=== PATIENT | male | born 1970 | race Caucasian/White ===

== ENCOUNTER 2017-08-21 06:44 | Observation (INO) | payer OTHER ==
[2017-08-21] MEDS ORDERED: DIAZEPAM 5 MG TAB PO ONE (06:48)
[2017-08-21] MEDS ORDERED: NS 1,000 ML IV ONE (06:48)
[2017-08-21] MEDS ORDERED: diphenhydrAMINE 25 MG CAP PO ONE (06:48)
[2017-08-21] MEDS ORDERED: BACITRACIN IRRIGATION/NS 50,000 UNITS/1,000 ML BTL IRR ONE (06:48)
--- NOTE | 2017-08-21 07:09 | CPEKG ---
Heart Rate: 75 RR Interval: 800 P-R Interval: 176 QRSD Interval: 178 QT Interval: 452 QTC Interval: 505 P [place]: 46 QRS [place]: -73 T Wave [place]: 93 EKG Severity - ABNORMAL ECG - EKG Impression: ATRIAL-SENSED VENTRICULAR-PACED RHYTHM Electronically Signed By: Phoenix Chua 21-Aug-2017 08:33:10
[2017-08-21 07:26] LABS: PLATELET COUNT 211 10^3/uL (150-400)
[2017-08-21 07:34] LABS: INR 0.96 (0.83-1.16)
[2017-08-21] MEDS ORDERED: methylPREDNISolone SOD SUCC 125 MG/2 ML VIAL ONE (08:25)
[2017-08-21] MEDS ORDERED: BUPIVACAINE 0.5% 30 ML SDV ONE (08:26)
[2017-08-21] MEDS ORDERED: IOPAMIDOL (ISOVUE-300) 100 ML BTL ONE (08:26)
[2017-08-21] MEDS ORDERED: EPINEPHrine 1 MG/10 ML SYR IVP ONE (08:26)
[2017-08-21] MEDS ORDERED: LIDOCAINE 1% 300 MG/30 ML SDV ONE (08:26)
[2017-08-21] MEDS ORDERED: FAMOTIDINE 20 MG/NACL/50 ML BAG IV ONE (08:26)
[2017-08-21] MEDS ORDERED: MIDAZOLAM 2 MG/2 ML VIAL IVP ONE (08:29)
--- NOTE | 2017-08-21 08:29 | PDANEPAE ---
ANE History of Present Illness 47 yo for biv pm ef 35% NIDDM CHELSI ANE Past Medical History - Cardiovascular History Hx Arrhythmias: Yes Hx Chest Pain: No Hx Coronary Artery / Peripheral Vascular Disease: No Hx CHF / Valvular Disease: Yes - Pulmonary History Hx Sleep Apnea: Yes ANE Review of Systems Review of Systems: - Exercise capacity METS (RN): 3 METS ANE Patient History - Allergies Allergies/Adverse Reactions: ampicillin Allergy (Verified 03/30/15 07:48) vancomycin Allergy (Verified 03/30/15 07:48) - Home Medications Home medications: home medication list seen and reviewed Home Medications: Aspirin [Aspirin 81mg (*)] 81 mg PO DAILY 08/16/17 [Last Taken 08/20/17 10:00] Atorvastatin Calcium [Lipitor 20 mg (*)] 20 mg PO DAILY 08/16/17 [Last Taken 10/02 10:00] Carvedilol [Coreg (*)] 3.125 mg PO BIDMEAL 08/16/17 [Last Taken 08/20/17 20:00] Furosemide [Lasix 40 MG (*)] 40 mg PO DAILY 08/16/17 [Last Taken 08/20/17 10:00] Levothyroxine [Synthroid 25 mcg (*)] 25 mcg PO DAILY06 08/16/17 [Last Taken 10/02 08:00] Lisinopril [Zestril 5 mg (*)] 5 mg PO DAILY 08/16/17 [Last Taken 08/20/17 10:00] [place]-3 Fatty Acids [Fish Oil 1000 mg (*)] 1,000 mg PO DAILY 08/16/17 [Last Taken 08/20/17 10:00] Potassium Cl [Klor-Con 20 meq (*)] 20 meq PO DAILY 08/16/17 [Last Taken 10:00] Spironolactone [Aldactone 25 MG (*)] 25 mg PO DAILY 08/16/17 [Last Taken 10:00] metFORMIN HCL [Glucophage 1000 mg] 1,000 mg PO BIDMEAL 08/16/17 [Last Taken 10/02 20:00] - Smoking Hx Smoking Status: Never smoked ANE Labs/Vital Signs - Labs Result Diagrams: 08/21/17 07:15 08/21/17 07:15 - Vital Signs Height: 5 ft 5 in Weight: 123.8 kg ANE Physical Exam - Airway Mallampati Score: Class 2 Mouth exam: normal dental/mouth exam - Pulmonary Pulmonary: no respiratory distress - Cardiovascular Cardiovascular: regular rate and rhythym - ASA Status ASA Status: III ANE Anesthesia Plan Anesthesia Plan: general endotracheal anesthesia
[2017-08-21] MEDS ORDERED: FAMOTIDINE 20 MG/2 ML SDV IVP ONE (08:30)
[2017-08-21] MEDS ORDERED: methylPREDNISolone SOD SUCC 125 MG/2 ML VIAL IVP ONE (08:30)
[2017-08-21] MEDS ORDERED: ceFAZolin 2 GM/SWFI 2 GM/20 ML SYR IVP ONE (08:30)
--- NOTE | 2017-08-21 08:33 | PDGENHP ---
History & Physical Chief Complaint: chf, nicmp Relevant Physical Exam: s1s2 rrr. cta. ao3 Cardiorespiratory Assessment: 47 M, congential complete AV block, now with NICMP and CHF. Normal coronaries, LVEF 30%. Plan addition of CS lead and also RV lead (if anatomy allows), possible tunneling from R SC access, possible new device RSC
[2017-08-21] MEDS ORDERED: REMIFENTANIL HCL 1 MG VIAL ONE (08:39)
[2017-08-21] MEDS ORDERED: fentaNYL 100 MCG/2 ML INJ ONE (08:39)
[2017-08-21] MEDS ORDERED: PROPOFOL/EMULSION 500 MG/50 ML BOTTLE IV ONE (08:39)
[2017-08-21] MEDS ORDERED: FAMOTIDINE 20 MG/NACL 50 ML IV ONE (08:45)
[2017-08-21] MEDS ORDERED: ONDANSETRON 4 MG/2 ML VIAL ONE (10:50)
[2017-08-21] MEDS ORDERED: ROCURONIUM 100 MG/10 ML VIAL ONE (10:50)
[2017-08-21] MEDS ORDERED: epHEDrine SULFATE 10 MG/ML SYR ONE (10:51)
--- NOTE | 2017-08-21 11:25 | EPPROC ---
Electrophysiology Procedure Note: PROCEDURE PERFORMED: 1. Upgrade of A-V PM to A-BiV PM 2. Subclavian vein angiography 3. Fluoroscopy 4. Pocket revision INDICATION: Existing A-V PM for congential complete AV block Pacemaker dependent junctional escape rhythm of 35 bpm appears after inhibiting pacing for 10-15 seconds Cardiomyopathy PROCEDURE NOTE: Patient presented to the cardiac catheterization laboratory in a fasting, postabsorptive state. Dr. Han administered anesthesia. The L infraclavicular area was prepped and draped in the usual sterile fashion. Lidocaine plus bupivacaine was used for local anesthesia. L subclavian venography was performed by injection of iodinated contrast into the L antecubital vein. This was done to assure patency of the vein and also to assess for any anatomical aberrations. Using a combination of blunt and sharp dissection and electrocautery, the dissection was carried down to the prepectoral fascia. The existing pacemaker pocket was exposed. All bleeding was controlled with electrocautery. The pocket was packed with gauze soaked in antibiotic solution. Fluoroscopy was utilized during the entire procedure for venous access and placement of the leads. The existing pacemaker pocket was in the superficial fat plane. Dissection was continued down to the prepectoral fascia and a pocket was fashioned in this plane. The leads were freed as much as possible from the existing pocket and tunneled to the deeper pocket. Using a direct stick technique the left extrathoracic axillary vein was accessed with 1 sticks using the modified Seldinger technique. Placement of the guide wire into the venous system was confirmed by low pressure blood return and also by visualizing the guide wire advancing into the inferior vena cava. A purse string suture was applied around the guide wire. Diagnostic testing of the existing leads was performed. A 9 [place] sheath was advanced over the guide wire into the subclavian vein. The coronary sinus ostium was engaged. Occlusion retrograde coronary sinus angiography was performed in 2 views. A coronary sinus quadrapolar lead was advanced into the coronary sinus. An angioplasty wire was advanced through the lead and advanced into the mid portion of the lateral branch of the coronary sinus. The lead was advanced over the angioplasty wire. Pacing threshold, sensing and impedance was determined. There was no diaphragmatic stimulation at maximum output. The delivery system and the 9 Fr sheath were peeled away. Again, pacing threshold, sensing and impedance was determined. There was no diaphragmatic stimulation at maximum output. The CS lead was secured to the prepectoral fascia with 3nonabsorbablesutures. Pacing threshold and sensing parameters of the RA and RV leads were checked again. Leads are old uniopolar leads, they were attached to Caravan adapters. The gauze packing was removed from the pacemaker pocket. The pocket was again inspected for any bleeding. The leads were attached to the pacemaker securely. The pacemaker was inserted into the pocket and secured in place with a nonabsorbable suture. Fluoroscopy was performed in HERNANDEZ and LIBERIAN planes to verify right sided placement of the RA and RV leads. Also fluoroscopy of the pacemaker pocket was performed. The pacemaker pocket was closed in 3 layers with absorbable monocryl sutures and chilango. Appropriate dressing was applied. The patient left the cardiac catheterization laboratory in stable condition. Serial Numbers: 1. Device [facility] Quadra Allure MP [id number] ASSOCIATE DESIGNER-P SN [id number] 2. Atrial Lead [employer] 483-03/52 cm SN [id number], adapter Caravan SN [id number] 3. Right Ventricular Lead [employer] 493-03/58 cm SN [id number], adapter Caravan SN [id number] 4. Left Ventricular Lead [facility] [id number] SN [id number] Stimulation Thresholds & Impedance Measurements: 1. Atrial Lead 1 V 0.5 ms P 1.1 mV 360 ohm 2. Right Ventricular Lead 2.2 V @ 1 ms R 3.7 mV 450 ohm 3. Left Ventricular Lead 0.7 V 0.5 ms 865 ohm Kash Pacing Parameters: 1. Pacing mode DDDR 2. Lower rate 55 ppm 3. Upper rate 150 ppm Patient Problems: Problems Problem Status Onset Cardiomyopathy Acute
--- NOTE | 2017-08-21 11:35 | CPEKG ---
Heart Rate: 83 RR Interval: 723 P-R Interval: 156 QRSD Interval: 140 QT Interval: 412 QTC Interval: 485 P [place]: 127 QRS [place]: 122 T Wave [place]: -9 EKG Severity - ABNORMAL ECG - EKG Impression: ATRIAL-SENSED VENTRICULAR-PACED RHYTHM EKG Impression: BiV paced Electronically Signed By: Phoenix Chua 21-Aug-2017 11:56:29
--- NOTE | 2017-08-21 11:36 | POSTANESTH ---
Post Anesthetic Evaluation Cardiovascular Status: Normal, Stable Respiratory Status: Normal, Stable Level of Consciousness/Mental Status: Can Participate in Eval Pain Control: Adequate, Prn Tx Ordered Nausea/Vomiting Control: Adequate, Prn Tx Ordered Complications Possibly Related to Anesthesia: None Noted
[2017-08-21] MEDS: CARVEDILOL 3.125 MG TAB PO SCH (18:38)
[2017-08-22 04:45] LABS: PLATELET COUNT 245 10^3/uL (150-400)
[2017-08-22] MEDS ORDERED: LEVOTHYROXINE 25 MCG TAB PO SCH (06:00)
[2017-08-22 07:32] VITALS: BP 124/69
--- NOTE | 2017-08-22 08:55 | CPEKG ---
Heart Rate: 70 RR Interval: 857 P-R Interval: 182 QRSD Interval: 140 QT Interval: 408 QTC Interval: 441 P [place]: 54 QRS [place]: 224 T Wave [place]: 12 EKG Severity - ABNORMAL ECG - EKG Impression: ATRIAL-SENSED VENTRICULAR-PACED RHYTHM Electronically Signed By: Chencho Villanueva 22-Aug-2017 09:44:04
[2017-08-22] MEDS ORDERED: POTASSIUM CL 20 MEQ TAB PO SCH (09:00)
[2017-08-22] MEDS ORDERED: FUROSEMIDE 40 MG TAB PO SCH (09:00)
[2017-08-22] MEDS ORDERED: ATORVASTATIN CALCIUM 20 MG TAB PO SCH (09:00)
[2017-08-22] MEDS ORDERED: SPIRONOLACTONE 25 MG TAB PO SCH (09:00)
[2017-08-22] MEDS ORDERED: OMEGA-3 FATTY ACIDS 1,000 MG CAP PO SCH (09:00)
[2017-08-22] MEDS ORDERED: LISINOPRIL 5 MG TAB PO SCH (09:00)
[2017-08-22] MEDS ORDERED: ASPIRIN 81 MG CHEWABLE TAB PO SCH (09:00)
--- NOTE | 2017-08-22 09:29 | ASMTCMCOM ---
CM Note CM Note Notes: 08/22/2017 Case Management Note Reviewed chart and spoke w/RN. Pt was admitted for CHF and underwent a pacemaker upgrade. There are no case management d/c needs identified d/t pt age, activity levels prior to admission and family support. There are no PT or OT evals ordered at this time. Case Management d/c poc: independent with follow up as directed. Case Management to follow. Date Signed: 08/22/2017 09:28 AM Electronically Signed By:Evelyn Bauer RN
[2017-08-22] MEDS: CARVEDILOL 3.125 MG TAB PO SCH (09:34)
--- NOTE | 2017-08-22 11:25 | ASDISCHSUM ---
Discharge Information Plan Status:Home with No Needs Medically Cleared to Leave:08/22/2017 Discharge Date:08/22/2017 CM D/C Disposition:Home, Routine, Self-Care ADT D/C Disposition:Home, Routine, Self-Care Projected Discharge Date:08/22/2017 Transportation at D/C:Family Discharge Delay Reason: Follow-Up Date:08/22/2017 Discharge Slot: Final Diagnosis: Placement Information Patient Contact Information Contact Name:SALEEM Relationship:Mother Address:[place] City: [facility] Phone: [facility]/Zip Code: Email: Financial Information Financial Class:HMO and PPO Plans Primary Plan Desc:ADMINISTRATIVE CONCEPTS Primary Plan Number:[id number] Secondary Plan Desc:MÓNICA PPO HMO OPEN ACCESS Secondary Plan Number:[id number] Assessment Information [facility] CM Progress Note CM Note CM Note Notes: 08/22/2017 Case Management Note Reviewed chart and spoke w/RN. Pt was admitted for CHF and underwent a pacemaker upgrade. There are no case management d/c needs identified d/t pt age, activity levels prior to admission and family support. There are no PT or OT evals ordered at this time. Case Management d/c poc: independent with follow up as directed. Case Management to follow. Date Signed: 08/22/2017 09:28 AM Electronically Signed By:Evelyn Bauer RN Case Management Discharge Plan Note Case Management Discharge Discharge Order Complete? Answers: Yes Patient to Obtain Answers: Independently Medications Transportation Arranged Answers: Family/Friends Discharge Comments Notes: 08/22/2017 Case Management Note Pt to d/c indepedent with follow up as directed. Date Signed: 08/22/2017 11:24 AM Electronically Signed By:Evelyn Bauer RN Intervention Information
--- NOTE | 2017-08-22 11:25 | ASMTLACE ---
EFREM Length of stay for Answers: 1 day current admission Acuity / Level of Answers: No Care: Did the patient have an inpatient admission? Comorbidities - select Answers: Congestive heart failure all that apply Other Notes: congenital complete AV block, now with NICMP # of Emergency department Answers: 0 visits in the last 6 months Score: 4 Date Signed: 08/22/2017 11:25 AM Electronically Signed By:Evelyn Bauer RN
--- NOTE | 2017-08-22 11:51 | GDS ---
[f rep st] DISCHARGE SUMMARY ADMISSION DIAGNOSES: 1. Congenital complete heart block, status post pacemaker with remote permanent pacemaker implantati on. 2. Nonischemic cardiomyopathy with known ejection fraction of 30% to 35% despite being on maximum me dical therapy. 3. Diabetes. 4. Hyperlipidemia. 5. Hypertension. 6. Obstructive sleep apnea. DISCHARGE DIAGNOSES: 1. Complete heart block. 2. Status post permanent pacemaker upgrade, with new [employer] Jordi generator, and new coronary sinus left ventricular lead implantation [employer] Jordi, pocket. 3. Nonischemic cardiomyopathy. 4. Diabetes. 5. Hyperlipidemia. 6. Hypertension. 7. Obstructive sleep apnea. PROCEDURES PERFORMED DURING HOSPITALIZATION: 1. Electrocardiogram. 2. Upgrade pacemaker to Bi-V pacer. 3. Subclavian angiogram. 4. Implantation of coronary sinus LV lead. 5. Pacemaker pocket revision. 6. Chest x-ray. BRIEF HISTORY: Please see H and P. Briefly, the patient is a 47-year-old male, who was first diagno sed with congenital complete heart block with pacemaker implantation at 14 years of age. He had rece ntly been admitted to [facility] with heart failure, was found that his ejection fractio n was 30% to 35%. Coronary angiogram was done with reportedly normal coronary arteries, diagnosed wi th nonischemic cardiomyopathy. Despite medical management, his recent echocardiogram showing no impr ovement in his ejection fraction. Potentially thinking pacer-induced myopathy. The patient was seen by Dr. Chua, with discussion about upgrading his device to a biventricular pacemaker for re-synchrono us therapies in hope to help improve his overall ejection fraction. Risks and benefits of the proced ure were explained to the patient, he verbalized understanding and wanting to proceed. HOSPITAL COURSE: Patient was admitted to [facility], prepped for procedure and taken to the cardiac cathete rization lab. There, Dr. Chua successfully implanted a new [employer] Jordi LV coronary sinus lead, revised t he patient's pacemaker pocket, and implanted a new [employer] Jordi device, to his existing atrial and right ventricular leads. No complications, patient was taken back to the C[facility], and ultimately to the PCU ov ernight. There, he has been atrial-sensed, V-paced throughout the evening. He denies any chest pain , shortness of breath, denies of any lightheadedness or palpitations. He has been up and walking the unit without any difficulties. Continuous cardiac monitoring showing A-sensed, V-paced with no andres gnant arrhythmias or pauses noted. PHYSICAL EXAMINATION DONE TODAY: GENERAL APPEARANCE: Short statured, mildly obese, male. He is alert and oriented to person, place, time, and situation, appears to be under no acute distres s. CURRENT VITAL SIGNS: Blood pressure of 124/69, heart rate of 63, respirations 16, saturating 93% on room air, temperature 36.5 degrees Celsius. HEENT: Head is normocephalic, lips and tongue are p ink and moist with no signs of cyanosis, conjunctivae pink. NECK: Trachea is midline, +2 carotid pu lses bilateral, no auscultated bruits, no jugular vein distention. RESPIRATORY: Lungs are clear to auscultation, no rhonchi, rales or wheezes, no accessory muscle use, no intercostal muscle retraction noted. CARDIAC: Regular rate, regular rhythm, S1, S2, 1/6 systolic murmur known along the left lilly rnal border. ABDOMEN: Soft, nontender, bowel sounds x4 quadrants, no organomegaly, no palpable mass es. SKIN: [place], warm, dry, no cyanosis, no clubbing, no peripheral edema. VASCULAR: +2 carotid pu lses bilateral, +2 radial pulses bilateral, +1 dorsal pedal and posterior tibial pulses bilateral. P ACEMAKER INSERTION SITE: Left anterior chest, incision intact with chilango with no redness, swelling , drainage, ecchymosis or hematoma. Dressing change done at this time. LABORATORY STUDIES: Laboratory studies drawn today show WBC of 15.73, hemoglobin 13.8, hematocrit of 41.3, platelet count of 245. Sodium 139, potassium 5.0, chloride 103, CO2 is 26, BUN 19, creatinine 0.8, glucose 158, calcium 9.3. PROCEDURES: Permanent pacemaker upgrade as mentioned above, morning electrocardiogram shows A-sense with V-paced rhythm. Morning chest x-ray showing no acute cardiopulmonary process, no delayed pneumo thorax from device implantation. Device interrogation by [employer]. Jordi rep, showing device functioning wi thin normal limits. DISCHARGE DISPOSITION: Patient will be discharged home in stable condition. He is under activity re strictions of not lifting left arm higher than shoulder height for the next 6 weeks and not lifting m ore than 10 pounds with the left arm for the next 6 weeks. DISCHARGE MEDICATIONS: Please see discharge medication reconciliation sheet, note patient did receiv e contrast during his procedure yesterday, and he has been told that he is not to resume his metformi n until tomorrow night, 48 hours after his procedure. DISCHARGE INSTRUCTIONS: Post pacemaker implantation Bi-V discharge instructions went over with the p atient and including monitoring for signs of infection, bleeding precautions, activity restricti on, and medication compliancy. At the time of discharge, patient and verbalize understanding al l instructions and have no questions or concerns. They have been told that the patient has a device and wound check set up in our office next week and a followup appointment with Dr. Chua next month. T he patient has been told that if any problems or concerns come up post discharge, they are to notify our office or return to the hospital. TOTAL TIME SPENT ON DISCHARGE: Greater than 30 minutes. /[id number]/MODL
== END 2017-08-22 11:47 | disposition home or self-care (01) ==
LOC: FCATH 06:44 → F2W 11:06
PROVIDERS: ADMIT Internal Medicine Cardiovascular Disease; ATTEND Internal Medicine Cardiovascular Disease
DX: Q24.6 Congenital heart block (principal); I42.9 Cardiomyopathy, unspecified; E11.9 Type 2 diabetes mellitus without complications; E78.5 Hyperlipidemia, unspecified; I11.0 Hypertensive heart disease with heart failure; G47.33 Obstructive sleep apnea (adult) (pediatric); I50.9 Heart failure, unspecified; Z79.82 Long term (current) use of aspirin; I44.2 Atrioventricular block, complete; Z88.0 Allergy status to penicillin
CPT/HCPCS: C1883; C1900; C2621; G0378; J0690; J1200; J2250; J2405; J2704; J2930; J3010; Q9967

== ENCOUNTER 2017-08-28 13:00 | Observation (INO) | payer OTHER ==
[2017-08-28] MEDS ORDERED: ONDANSETRON DISINTEGRATING 4 MG TAB PO PRN (16:58)
[2017-08-28] MEDS ORDERED: ONDANSETRON 4 MG/2 ML VIAL IVP PRN (16:58)
[2017-08-28] MEDS ORDERED: ACETAMINOPHEN 325 MG TAB PO PRN (16:58)
--- NOTE | 2017-08-28 16:58 | PDCARPN ---
Cardiology Progress Note Chief Complaint: lead dislodged Assessment/Plan: Assessment\Plan: Toni is a 47 y/o M with a history of congenital CHB s/p pacer at age 14. He was recently diagnosed with NICMP with EF of 35% and the decision was made to upgrade him to a BIV device on 08/21. His pacer interrogation today showed a his CS lead dislodged and his RV lead has impedence decreased. He is admitted for CS lead revision and new RV lead. 08/28/17 16:53 Subjective: He denies any CP or SOB. - Physical Exam Constitutional: WDWN Cardiovascular: regular rate and rhythm Respiratory: clear to auscultate bilat, no crackles, no wheezes Skin: no edema Neurologic: AAOx3 ICD10 Worksheet Patient Problems: Problems Problem Status Onset Cardiomyopathy Acute
[2017-08-28 18:40] LABS: INR 0.9 (0.83-1.16); PROTIME(PATIENT) 12.4 SEC (12.0-15.0)
[2017-08-28] MEDS: CARVEDILOL 3.125 MG TAB PO SCH (18:48)
[2017-08-28 20:26] LABS: PLATELET COUNT 252 10^3/uL (150-400)
[2017-08-29] MEDS ORDERED: NS 1,000 ML IV ONE (06:00)
[2017-08-29] MEDS ORDERED: BACITRACIN IRRIGATION/NS 50,000 UNITS/1,000 ML BTL IRR ONE ×2 (06:00→12:00)
[2017-08-29] MEDS: LEVOTHYROXINE 25 MCG TAB PO SCH (09:43)
[2017-08-29] MEDS: ATORVASTATIN CALCIUM 20 MG TAB PO SCH (09:43)
[2017-08-29] MEDS: CARVEDILOL 3.125 MG TAB PO SCH ×2 (09:43→18:06)
[2017-08-29] MEDS: LISINOPRIL 5 MG TAB PO SCH (09:43)
[2017-08-29] MEDS ORDERED: methylPREDNISolone SOD SUCC 125 MG/2 ML VIAL IVP ONE (12:45)
[2017-08-29] MEDS ORDERED: FAMOTIDINE 20 MG/NACL 50 ML IV ONE (13:00)
[2017-08-29] MEDS ORDERED: MIDAZOLAM 2 MG/2 ML VIAL IVP ONE (13:16)
--- NOTE | 2017-08-29 13:16 | PDANEPAE ---
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 Jordi VANESSA Patient History - Allergies Allergies/Adverse Reactions: ampicillin Allergy (Severe, Verified 08/28/17 19:52) Swelling/neck,face,throat vancomycin Allergy (Intermediate, Verified 08/28/17 19:52) Red Man Syndrome - Home Medications Home medications: home medication list seen and reviewed Home Medications: Aspirin [Aspirin 81mg (*)] 81 mg PO DAILY 08/16/17 [Last Taken 08/28/17 10:00] Atorvastatin Calcium [Lipitor 20 mg (*)] 20 mg PO HS 08/16/17 [Last Taken 21:00] Carvedilol [Coreg (*)] 3.125 mg PO BIDMEAL 08/16/17 [Last Taken 08/28/17 18:00] Furosemide [Lasix 40 MG (*)] 40 mg PO DAILY 08/16/17 [Last Taken 08/28/17 10:00] Levothyroxine [Synthroid 25 mcg (*)] 25 mcg PO DAILY 08/16/17 [Last Taken 09:00] Lisinopril [Zestril 5 mg (*)] 5 mg PO DAILY 08/16/17 [Last Taken 08/28/17 10:00] [place]-3 Fatty Acids [Fish Oil 1000 mg (*)] 1,000 mg PO DAILY 08/16/17 [Last Taken 08/28/17 10:00] Potassium Cl [Klor-Con 20 meq (*)] 20 meq PO DAILY 08/16/17 [Last Taken 10:00] Spironolactone [Aldactone 25 MG (*)] 25 mg PO DAILY 08/16/17 [Last Taken 10:00] metFORMIN HCL [Glucophage 1000 mg] 1,000 mg PO BIDMEAL 08/16/17 [Last Taken 10:00] Ascorbic Acid [Vitamin C 500 mg (*)] 500 mg PO DAILY 08/28/17 [Last Taken 10:00] Cyanocobalamin [Vitamin B12 (*)] 1,000 mcg PO DAILY 08/28/17 [Last Taken 10:00] - NPO status NPO Status: no food or drink >8 hours - Smoking Hx Smoking Status: Never smoked ANE Labs/Vital Signs - Labs Result Diagrams: 08/28/17 19:55 08/28/17 19:55 - Vital Signs Blood Pressure: 108/66 Heart Rate: 83 Respiratory Rate: 14 O2 Sat (%): 92 Height: 5 ft 5 in Weight: 117 kg ANE Physical Exam - Airway Neck exam: FROM Mallampati Score: Class 3 Mouth exam: normal dental/mouth exam - Pulmonary Pulmonary: no respiratory distress - Cardiovascular Cardiovascular: regular rate and rhythym - ASA Status ASA Status: III ANE Anesthesia Plan Anesthesia Plan: general endotracheal anesthesia
[2017-08-29] MEDS ORDERED: REMIFENTANIL HCL 1 MG VIAL ONE (13:22)
[2017-08-29] MEDS ORDERED: PROPOFOL/EMULSION 500 MG/50 ML BOTTLE IV ONE (13:22)
[2017-08-29] MEDS ORDERED: fentaNYL 100 MCG/2 ML INJ ONE (13:22)
[2017-08-29] MEDS ORDERED: LIDOCAINE 1% 300 MG/30 ML SDV ONE (13:31)
[2017-08-29] MEDS ORDERED: IOPAMIDOL (ISOVUE-300) 100 ML BTL ONE (13:35)
[2017-08-29] MEDS ORDERED: BUPIVACAINE 0.5% 30 ML SDV ONE (13:35)
[2017-08-29] MEDS ORDERED: ceFAZolin 2 GM/SWFI 2 GM/20 ML SYR IVP ONE (14:00)
--- NOTE | 2017-08-29 16:59 | EPPROC ---
Electrophysiology Procedure Note: PROCEDURE PERFORMED: 1. Subclavian vein angiography 2. Fluoroscopy 3. Removal of old LV lead and placement of new LV lead 4. Placement of new RV lead INDICATION: Existing A-V PM for congential complete AV block Pacemaker dependent junctional escape rhythm of 35 bpm appears after inhibiting pacing for 10-15 seconds Cardiomyopathy Upgrade to BiV pacer last week, however LV lead dislodged and old RV lead impedance dropped to 180 ohms PROCEDURE NOTE: Patient presented to the cardiac catheterization laboratory in a fasting, postabsorptive state. Dr. Han administered anesthesia. The L infraclavicular area was prepped and draped in the usual sterile fashion. L subclavian venography was performed by injection of iodinated contrast into the L antecubital vein. This was done to assure patency of the vein. Using a combination of blunt and sharp dissection and electrocautery, the dissection was carried down to the prepectoral fascia. The existing pacemaker pocket was exposed. All bleeding was controlled with electrocautery. The pocket was packed with gauze soaked in antibiotic solution. Fluoroscopy was utilized during the entire procedure for venous access and placement of the leads. Using a direct stick technique the left extrathoracic axillary vein was accessed with 1 sticks using the modified Seldinger technique. Placement of the guide wire into the venous system was confirmed by low pressure blood return and also by visualizing the guide wire advancing into the inferior vena cava. 6Fr sheath was placed and RV lead placed via sheath into RV apex and screwed into place. Sheath was peeled away. Lead parameters were checked, there was no diaphgramatic stimulation at maximum output. The existing coronary sinus lead. A Luge angioplasty wire was placed via the lead into the lateral branch of the coronary sinus. However the lead could not be advanced because of lack of support. We also tried using a Mailman wire without success. At this point angioplasty wire was left in the venous system, using a dilator was exchanged for a 0.35 inch J-wire. A 9 Greek [place] sheath was advanced over the guide wire into the subclavian vein. The coronary sinus ostium was engaged. A Medtronic 88 cm coronary sinus quadrapolar lead (straight, tined) was advanced into the coronary sinus. Tined lead was used since previous lead dislodged despite good location, patient is aware that this may cause issues in case lead explant is needed in the future. An angioplasty wire was advanced through the lead and advanced into the mid portion of the lateral branch of the coronary sinus. The lead was advanced over the angioplasty wire. Pacing threshold, sensing and impedance was determined. There was no diaphragmatic stimulation at maximum output. The delivery system and the 9 Fr sheath were peeled away. Again, pacing threshold, sensing and impedance was determined. There was no diaphragmatic stimulation at maximum output. The CS lead was secured to the prepectoral fascia with 3nonabsorbablesutures. Pacing threshold and sensing parameters of the RA lead was checked again. RA lead is an old uniopolar lead, this is attached to [employer] adapters. RV lead was capped and sutured to the posterior aspect of the pacemaker pocket. The gauze packing was removed from the pacemaker pocket. The pocket was again inspected for any bleeding. The leads were attached to the pacemaker securely. The pacemaker was inserted into the pocket and secured in place with a nonabsorbable suture. Adequate slack was assured on the leads by anesthesiologist performing Valsalva maneuver via ventilator. Fluoroscopy was performed in [place] and [place] planes to verify right sided placement of the RA and RV leads. Also fluoroscopy of the pacemaker pocket was performed. The pacemaker pocket was closed in 3 layers with absorbable monocryl sutures and chilango. Appropriate dressing was applied. The patient left the cardiac catheterization laboratory in stable condition. Serial Numbers: 1. Device [facility] Quadra Allure MP [id number] MANAGER PRIMARY-P SN [id number] 2. Atrial Lead Intermedi 483-03/52 cm SN [id number], adapter [employer] SN [id number] - unipolar sensing and pacing 3. Capped Right Ventricular Lead Intermedi 493-03/58 cm SN [id number] - capped , not usable because of low impedance 4. Right ventricular lead [facility] 2088TC 58 cm SN [id number] 5. Left Ventricular Lead Medtronic 4398-88cm SN [id number] Stimulation Thresholds & Impedance Measurements: 1. Atrial Lead 1 V 0.5 ms P 1.1 mV 380 ohm 2. Right Ventricular Lead no R waves 0.75 V @ 0.5 ms 550 ohm 3. Left Ventricular Lead 0.5 V 0.5 ms 440 oh (M3-M2) Kash Pacing Parameters: 1. Pacing mode DDDR 2. Lower rate 60 ppm 3. Upper rate 150 ppm Patient Problems: Problems Problem Status Onset Cardiomyopathy Acute
--- NOTE | 2017-08-29 17:15 | ASMTCMCOM ---
CM Note CM Note Notes: 08/29/2017 Case Management Note Discussed case with RN and reviewed chart. Pt admitted with a dysfunction in pacemaker. Today he had a pacer lead revision in the civil laboratory technician. There are no case management d/c needs identified d/t pt age, family support and activity levels prior to admission. Case Management d/c poc: anticipating independent with follow up as directed. Case Management available if needs change. Date Signed: 08/29/2017 02:04 PM Electronically Signed By:Evelyn Bauer RN
--- NOTE | 2017-08-29 17:26 | CPEKG ---
Heart Rate: 83 RR Interval: 723 P-R Interval: 180 QRSD Interval: 132 QT Interval: 436 QTC Interval: 513 P [place]: 33 QRS [place]: 177 T Wave [place]: -31 EKG Severity - ABNORMAL ECG - EKG Impression: ATRIAL-SENSED VENTRICULAR-PACED RHYTHM Electronically Signed By: Aj Sorensen 30-Aug-2017 07:01:43
[2017-08-30] MEDS: LEVOTHYROXINE 25 MCG TAB PO SCH (03:07)
[2017-08-30 04:49] LABS: PLATELET COUNT 268 10^3/uL (150-400)
[2017-08-30 08:40] VITALS: BP 127/64
[2017-08-30] MEDS ORDERED: FUROSEMIDE 40 MG TAB PO SCH (09:00)
[2017-08-30] MEDS ORDERED: OMEGA-3 FATTY ACIDS 1,000 MG CAP PO SCH (09:00)
[2017-08-30] MEDS ORDERED: ASPIRIN 81 MG CHEWABLE TAB PO SCH (09:00)
[2017-08-30] MEDS ORDERED: CYANO/VITAMIN B12 1000 MCG TAB PO SCH (09:00)
--- NOTE | 2017-08-30 09:02 | CPEKG ---
Heart Rate: 71 RR Interval: 845 P-R Interval: 160 QRSD Interval: 124 QT Interval: 456 QTC Interval: 496 P [place]: 48 QRS [place]: 180 T Wave [place]: -39 EKG Severity - ABNORMAL ECG - EKG Impression: ATRIAL-SENSED VENTRICULAR-PACED COMPLEXES Electronically Signed By: Phoenix Chua 30-Aug-2017 11:16:26
[2017-08-30] MEDS: ATORVASTATIN CALCIUM 20 MG TAB PO SCH (09:18)
[2017-08-30] MEDS: CARVEDILOL 3.125 MG TAB PO SCH (09:18)
[2017-08-30] MEDS: LISINOPRIL 5 MG TAB PO SCH (09:18)
--- NOTE | 2017-08-30 11:15 | GDS ---
[f rep st] DISCHARGE SUMMARY DISCHARGE DIAGNOSES: 1. Congenital heart block status post pacer at age of 14 with an upgrade to a biventricular [place] device on 08/21 secondary to nonischemic cardiomyopathy. A few days later, his coronary sinus lead dislodged and his right ventricular impedances were poor. On 08/29, the coronary sinus lead was junito joy and a new lead was placed. He also had a new right ventricle lead placed. 2. Nonischemic cardiomyopathy with an ejection fraction of 35%, likely pacer mediated. 3. Systolic heart failure. 4. Diabetes. 5. Hypertension. 6. Hyperlipidemia. HOSPITAL COURSE: For detailed H and P, please see prior dictation. Briefly, the patient is a 47-yea r-old male with a history of complete heart block status post pacemaker at the age of 14. He recentl y presented to the hospital in heart failure and was found to have nonischemic cardiomyopathy with an ejection fraction of 35%. Ultimately, the decision was made to upgrade him to a BiV device which wa s done by Dr. Chua on 08/21. A few days later, he presented back to our office for pacer interrogatio n, and his CS lead had dislodged and his RV impedances were poor. He was readmitted to the hospital on 08/28, and the following day, his CS lead was removed and a new lead was placed. He also had a ne w RV lead placed. The procedure was uncomplicated. The following day, the patient denied any signif icant discomfort over his pacemaker site. His EKG showed a-sensing with ventricular pacing. He was monitored on telemetry, was V paced the majority of the time. His chest x-ray the day of discharge s howed good lead placement. PHYSICAL EXAMINATION: GENERAL: Patient appears in no acute distress. VITAL SIGNS: Blood pressure 127/64, heart rate 68, oxygen saturation of 94% on room air, afebrile. LUNGS: Clear to auscultation . No wheezes, rhonchi, or crackles auscultated. CARDIAC: Regular rate and rhythm without any signif icant murmurs, rubs, or gallops appreciated. CHEST WALL: Clean and intact without any evidence of in fection or hematoma. DISCHARGE MEDICATIONS: Metformin 1000 mg twice daily on hold for 48 hours post procedures, Aldactone 25 mg daily, lisinopril 5 mg daily, potassium 20 mEq daily, fish oil 1000 mg daily, Synthroid 25 mcg daily, Lasix 40 mg daily, Coreg 3.125 mg twice daily, Lipitor 20 mg at bedtime, aspirin 81 mg daily, vitamin B12 at 1000 mcg daily, vitamin C 500 mg daily. PLAN: The patient is currently stable and ready for discharge home. He has been given pacer precaut ions. He is scheduled for a wound check and pacer interrogation on 09/07 at 2:45. He is also schedu led for an echocardiogram to reassess his cardiomyopathy on 09/29 at 10:30. He is then scheduled to follow up with Dr. Chua on 10/05 at 3:45. He is aware that he is to hold his metformin for 48 hours p ost procedure. Greater than 30 minutes was spent coordinating the patient's care today. /[id number]/MODL
== END 2017-08-30 11:25 | disposition home or self-care (01) ==
LOC: F2W 16:49
PROVIDERS: ADMIT Internal Medicine Cardiovascular Disease; ATTEND Internal Medicine Cardiovascular Disease
DX: T82.120A Displacement of cardiac electrode, initial encounter (principal); T82.198A Other mechanical complication of other cardiac electronic device, initial encounter; Q24.6 Congenital heart block; I42.9 Cardiomyopathy, unspecified; E11.9 Type 2 diabetes mellitus without complications; E78.5 Hyperlipidemia, unspecified; I11.0 Hypertensive heart disease with heart failure; I44.2 Atrioventricular block, complete; G47.33 Obstructive sleep apnea (adult) (pediatric); I50.9 Heart failure, unspecified; Y71.2 Prosthetic and other implants, materials and accessory cardiovascular devices associated with adverse incidents; Z79.82 Long term (current) use of aspirin; Z88.0 Allergy status to penicillin
CPT/HCPCS: 33217; 33235; 71045; 71046; 93005; G0378; C1900; J0690; J1200; J2250; J2704; J2930; J3010; Q9967